=== PATIENT | female | born 1990 | race Hispanic/Latino ===

== ENCOUNTER 2025-03-17 02:53 | Day surgery (SDC) | payer OTHER ==
[2025-03-17 04:02] VITALS: BMI 32.1
[2025-03-17] MEDS ORDERED: hydrALAZINE 20 MG/ML VIAL SLOW IVP PRN (04:26)
[2025-03-17 05:08] LABS: Hematocrit 32.1 % (34.9-44.5); Hemoglobin 10.4 g/dL (12.0-15.5); Mean Corpuscular Hemoglobin 32.5 pg (27.0-33.0); Mean Corpuscular Volume 100.3 fL (81.6-98.3); Red Blood Cell (RBC) Count 3.20 10x6/uL (3.90-5.03); White Blood Cell (WBC) Count 8.96 10x3/uL (3.5-10.5)
[2025-03-17 05:14] LABS: ALT (SGPT) 16 U/L (Less than 34); AST (SGOT) 20 U/L (11-34); Albumin 3.2 g/dL (3.1-4.5); Alkaline Phosphatase 93 U/L (40-110); Anion Gap 13 mmol/L (10-20); BUN (Urea Nitrogen) 8 mg/dL (7.0-18.7); Bilirubin, Total 0.4 mg/dL (0.3-1.2); Calc. Creatinine Clearance 163 mL/min (70-130); Calcium 8.3 mg/dL (7.8-10.44); Carbon Dioxide 23 mmol/L (22-29); Chloride 106 mmol/L (98-107); Globulin 3.3 g/dL (2.4-3.5); Glucose 98 mg/dL (70-105); Potassium 3.5 mmol/L (3.5-5.1); Sodium 138 mmol/L (136-145)
[2025-03-17 05:26] LABS: Glucose, Urine (Dipstick) Normal (Negative); Leukocyte 25 (Negative); Protein, Urine (Dipstick) 30 mg/dl (Neg-Trace); Specific Gravity, Urine 1.020 (1.005-1.030)
[2025-03-17 05:38] LABS: Bacteria/HPF 2+ HPF (None Seen); CAUTI Indications for Culture Pregnancy; RBC/HPF 0-3 HPF (0-3); WBC/HPF 0-3 HPF (0-3)
[2025-03-17 05:40] LABS: Urine Culture Reflex Yes Yes
[2025-03-17 05:51] LABS: Platelet Adequacy Comment Appears Adequate
[2025-03-17] MEDS: Acetaminophen 500 MG TAB PO SCH (05:51)
[2025-03-17 05:52] LABS: Platelet Count 92 10x3/uL (130-400)
[2025-03-17 06:01] LABS: Protein, Urine Random Quant 25.0 mg/dL (1-14)
[2025-03-17 06:06] LABS: #Basophils Less than 0.03 10x3/uL (0.0-0.2); #Eosinophils 0.07 10x3/uL (0.0-0.5); #Monocytes 0.48 10x3/uL (0.0-1.1); #Neutrophils 6.89 10x3/uL (1.5-8.4); %Basophils 0.2 % (0.0-2.0); %Eosinophils 0.8 % (0.0-6.0); %Lymphocytes 15.1 % (18.0-47.0); %Monocytes 5.4 % (0.0-10.0); %Neutrophils 76.8 % (40.0-75.0)
[2025-03-17] MEDS: Fosfomycin 3 GM/Packet PO SCH (07:25)
[2025-03-17 08:26] LABS: #Basophils Less than 0.03 10x3/uL (0.0-0.2); #Eosinophils 0.08 10x3/uL (0.0-0.5); #Monocytes 0.46 10x3/uL (0.0-1.1); #Neutrophils 5.90 10x3/uL (1.5-8.4); %Basophils 0.1 % (0.0-2.0); %Eosinophils 0.9 % (0.0-6.0); %Lymphocytes 18.6 % (18.0-47.0); %Monocytes 5.7 % (0.0-10.0); %Neutrophils 73.1 % (40.0-75.0); Hematocrit 28.5 % (34.9-44.5); Hemoglobin 9.3 g/dL (12.0-15.5); MDiff Complete? YES; Mean Corpuscular Hemoglobin 32.4 pg (27.0-33.0); Mean Corpuscular Volume 100.7 fL (81.6-98.3); Platelet Adequacy Comment Appears Decreased; RBC Morphology Within Normal Limits; Red Blood Cell (RBC) Count 2.87 10x6/uL (3.90-5.03); White Blood Cell (WBC) Count 8.07 10x3/uL (3.5-10.5)
[2025-03-17 08:31] LABS: Platelet Count 82 10x3/uL (130-400)
== END 2025-03-17 10:25 | disposition home health service (06) ==
LOC: CSHLD/OP 02:53
PROVIDERS: ATTEND Family Medicine
DX: O23.43 Unspecified infection of urinary tract in pregnancy, third trimester (principal); O21.2 Late vomiting of pregnancy; O99.891 Other specified diseases and conditions complicating pregnancy; R51.9 Headache, unspecified; O09.523 Supervision of elderly multigravida, third trimester; O99.113 Other diseases of the blood and blood-forming organs and certain disorders involving the immune mechanism complicating pregnancy, third trimester; D69.6 Thrombocytopenia, unspecified; Z3A.35 35 weeks gestation of pregnancy; Z79.899 Other long term (current) drug therapy
CPT/HCPCS: 36415; 80053; 81001; 82570; 84156; 85025; 87086; 96360; 96361; 99285; Q0162

== ENCOUNTER 2025-04-11 22:07 | Inpatient (IN) | payer MEDICAID, OTHER, SELFPAY ==
[2025-04-11 22:33] VITALS: BMI 25.6
[2025-04-11 23:28] LABS: Fetal Membranes Rupture RUPTURE DETECTED (No Rupture)
[2025-04-12] MEDS ORDERED: Acetaminophen 500 MG TAB PO PRN (00:02)
[2025-04-12] MEDS ORDERED: Lidocaine 1% (PF) 30 ML VIAL SC PRN (00:02)
[2025-04-12] MEDS ORDERED: Methylergonovine 0.2 MG/ML VIAL IM PRN (00:02)
[2025-04-12] MEDS ORDERED: Tranexamic Acid 1,000 MG/10 ML VIAL IVP PRN (00:02)
[2025-04-12] MEDS ORDERED: Diphenoxylate HCl/Atropine Tablet PO PRN ×2 (00:02)
[2025-04-12] MEDS ORDERED: Ibuprofen 800 MG TAB PO PRN (00:02)
[2025-04-12] MEDS ORDERED: Carboprost 250 MCG/ML AMP IM PRN (00:02)
[2025-04-12] MEDS ORDERED: Ondansetron PF 4 MG/2 ML Vial IVP PRN ×3 (00:02→09:49)
[2025-04-12] MEDS ORDERED: hydrALAZINE 20 MG/ML VIAL SLOW IVP PRN ×2 (00:02→09:49)
[2025-04-12] MEDS ORDERED: Oxytocin 30 units/NS 500 ML 500 ML IV SCH (00:15)
[2025-04-12 01:22] LABS: Hematocrit 34.4 % (34.9-44.5); Hemoglobin 11.4 g/dL (12.0-15.5); Mean Corpuscular Hemoglobin 32.9 pg (27.0-33.0); Mean Corpuscular Volume 99.4 fL (81.6-98.3); Platelet Count 114 10x3/uL (150-450); Red Blood Cell (RBC) Count 3.46 10x6/uL (3.90-5.03); White Blood Cell (WBC) Count 8.00 10x3/uL (3.5-10.5)
[2025-04-12 01:23] LABS: Hep B Surf Ag - L&D Non-Reactive S/CO (NonReactive)
[2025-04-12 01:25] LABS: Syphilis Antibody Index 0.03 S/CO (<1.00 Non-Reactive)
[2025-04-12] MEDS: Oxytocin 30 units/NS 500 ML 500 ML IV SCH ×2 (05:20→09:07)
[2025-04-12] MEDS ORDERED: Acetaminophen 325 MG TAB PO PRN (05:32)
[2025-04-12] MEDS ORDERED: diphenhydrAMINE 50 MG/ML VIAL IVP PRN (05:32)
[2025-04-12] MEDS ORDERED: Communication Order-Pharmacy FS SCH (05:45)
[2025-04-12] MEDS ORDERED: fentaNYL 2 mcg/Ropivacaine 0.2% Epidural 100 ML CADD EPIDURAL SCH (05:45)
[2025-04-12] MEDS: fentaNYL/Ropivacaine Epidural 100 ML ONE (05:57)
[2025-04-12] MEDS ORDERED: HYDROcodone/Acetaminophen 5/325 mg Tablet PO PRN (09:49)
[2025-04-12] MEDS ORDERED: Bisacodyl 10 MG SUPP PR PRN (09:49)
[2025-04-12] MEDS ORDERED: Lanolin Ointment 7 GM TUBE TOP PRN (09:49)
[2025-04-12] MEDS ORDERED: diphenhydrAMINE 25 MG CAP PO PRN (09:49)
[2025-04-12] MEDS ORDERED: Milk Of Magnesia 30 ML UDCUP PO PRN (09:49)
[2025-04-12] MEDS ORDERED: Benzocaine-Menthol 82.5 ML CAN TOP PRN (09:49)
[2025-04-12] MEDS: Ibuprofen 800 MG TAB PO SCH (13:31)
[2025-04-12] MEDS: Ferrous Sulfate 325 MG TAB PO SCH (15:11)
[2025-04-13] MEDS: Boostrix 0.5 ML (Tdap) VIAL (>/=7 yrs of age) IM ONE (07:31)
[2025-04-13 08:51] VITALS: BP 91/55; TEMP 97.5
== END 2025-04-13 13:35 | disposition home or self-care (01) | DRG 807 ==
LOC: CSHLD/OP 22:07 → CSHLD 23:50 → CSHPP 04-12 10:10
PROVIDERS: ADMIT Family Medicine; ATTEND Family Medicine
PROC: 10E0XZZ Delivery of Products of Conception, External Approach (ICD-10-PCS; principal; 2025-04-12)
PROC: 0HQ9XZZ Repair Perineum Skin, External Approach (ICD-10-PCS; 2025-04-12)
DX: O70.0 First degree perineal laceration during delivery (principal); Z37.0 Single live birth; Z3A.39 39 weeks gestation of pregnancy; Z79.82 Long term (current) use of aspirin; Z79.899 Other long term (current) drug therapy
CPT/HCPCS: 51702; 84112; 85027; 86780; 86850; 86900; 86901; 87340; 99285; J2590; J7120